=== PATIENT | male | born 1970 | race Two or more races ===

== ENCOUNTER 2020-02-22 08:13 | Emergency (ER) | payer MEDICAID ==
[~2020-02-22] VITALS: Ht 188 cm; Wt 67.4 kg
--- NOTE | 2020-02-22 10:28 | NUR ---
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
[2020-02-22] MEDS ORDERED: OXYcodone/APAP 5/325MG TABLET ONE (11:18)
[2020-02-22] MEDS ORDERED: LIDOCAINE-MPF 1%, 5ML ONE ×2 (11:20→11:21)
[2020-02-22] MEDS ORDERED: LIDOCAINE 1%, 10ML INFIL ONE (11:30)
[2020-02-22] MEDS ORDERED: OXYcodone/APAP 5/325MG TABLET PO ONE (11:30)
[2020-02-22 12:10] VITALS: BP 173/119
== END 2020-02-22 12:23 | disposition home or self-care (01) ==
LOC: ED 11:26
DX: S60.454A Superficial foreign body of right ring finger, initial encounter (principal); L03.011 Cellulitis of right finger; X58.XXXA Exposure to other specified factors, initial encounter; Y93.89 Activity, other specified; Y92.89 Other specified places as the place of occurrence of the external cause; Y99.8 Other external cause status
CPT/HCPCS: 64450; 99284

== ENCOUNTER 2020-11-04 07:04 | Emergency (ER) | payer MEDICAID ==
--- NOTE | 2020-11-04 07:16 | NUR ---
PLEASE REFER TO CODE SHEET FOR PT CARE. ALL INFORMATION "RECALLED" FROM TRIAGE AND CLINICAL SCREEN.
[2020-11-04] MEDS ORDERED: EPINEPHRINE SYRINGE 0.1 MG/ML, 10ML ONE (07:19)
[2020-11-04] MEDS ORDERED: SODIUM BICARB 8.4%, 50ML SYRINGE ONE (07:19)
[2020-11-04] MEDS ORDERED: CODE BLUE RESPONSE XX ONE (07:19)
[2020-11-04] MEDS ORDERED: EPINEPHRINE 1 MG/ML, 1ML IVPush ONE (07:30)
[2020-11-04] MEDS ORDERED: SODIUM BICARBONATE 1 MEQ/ML, 50ML VIAL IVPush ONE (07:30)
--- NOTE | 2020-11-04 07:44 | NUR ---
REGIONAL BUSINESS MANAGER CALLED. REGIONAL BUSINESS MANAGER RUTHIE KAPLAN TO RESPOND.
--- NOTE | 2020-11-04 07:52 | NUR ---
CALL COMPLETED TO [employer] [facility]. CJ TO CALL BACK FOLLOWING UP WITH MEDICAL EXAMINERS PROGRESS.
--- NOTE | 2020-11-04 09:28 | NUR ---
PER WATER SERVICE SUPERVISOR, PT MAY BE PLACED IN MORGUE BUT HELD FOR EXAMINATION PRIOR TO HOME TRANSFER. BRANNER MACHINE TENDER UPDATED ON WATER SERVICE SUPERVISOR'S PLAN.
== END 2020-11-04 12:26 | disposition expired ==
LOC: ED 07:55
DX: I46.9 Cardiac arrest, cause unspecified (principal); I49.01 Ventricular fibrillation; I10 Essential (primary) hypertension; J44.9 Chronic obstructive pulmonary disease, unspecified
CPT/HCPCS: 92950; 92960